=== PATIENT | female | born 1985 ===

== ENCOUNTER 2018-10-26 07:16 | Inpatient (IN) | payer OTHER ==
[~2018-10-26] VITALS: Ht 172.7 cm; Wt 2.7 kg
[2018-10-26] MEDS ORDERED: PRENATAL ONE T1 EACH PO (07:57)
[2018-10-26] MEDS ORDERED: IRON 100 PLUS1 EACH PO (07:59)
== END 2018-10-29 15:49 | disposition home or self-care (01) | DRG 785 ==
LOC: OB/GYN 07:16 → LDR 07:16 → OB/GYN 14:48
PROVIDERS: ADMIT Specialist
PROC: 0UL70ZZ Occlusion of Bilateral Fallopian Tubes, Open Approach (ICD-10-PCS; 2018-10-26)
PROC: 4A1HXCZ Monitoring of Products of Conception, Cardiac Rate, External Approach (ICD-10-PCS; 2018-10-26)
PROC: 10D00Z1 Extraction of Products of Conception, Low, Open Approach (ICD-10-PCS; principal; 2018-10-26 14:00)
DX: O82 Encounter for cesarean delivery without indication (principal); Z3A.39 39 weeks gestation of pregnancy; Z37.0 Single live birth; Z30.2 Encounter for sterilization